=== PATIENT | male | born 1955 | race Caucasian/White ===

== ENCOUNTER 2018-08-08 14:51 | Inpatient (IN) | payer OTHER, SELFPAY ==
[2018-08-08 14:51] VITALS: BP 124/84; PULSE 84; RESP 14; TEMP 37; O2SAT 99; BMI 20.5
--- NOTE | 2018-08-08 15:29 | CT_ITS ---
STUDY: CT ABDOMEN AND PELVIS WITH CONTRAST REASON FOR EXAM: Male, 63 years old. Right lower quadrant abdominal pain bulge when standing question hernia. Prior appendectomy. RADIATION DOSAGE (If Supplied By Facility): CTDIvol = ( 8.40 ) mGy, DLP = ( 332.33 ) mGycm TECHNIQUE: Transaxial images were obtained from the dome of the diaphragm to the symphysis pubis without oral contrast. 100mL ml of Isovue 300 contrast was administered. Sagittal and coronal images were reconstructed. Individualized dose optimization techniques were used for this CT. COMPARISON: None. FINDINGS: The visualized lung bases are unremarkable. The visualized portions of the heart are within normal limits. There is a 2.6 x 2.4 cm cyst in the dome of the liver. Additional subcentimeter hypodensities are too small to characterize. The liver is otherwise unremarkable. Normal gallbladder and extrahepatic biliary system. Normal spleen. Normal pancreas. Normal bilateral adrenal glands. Normal right kidney. Normal left kidney. The aorta is normal in caliber. There is trace free fluid in the pelvis. There is no free air or organized collection. There is a high-grade small bowel obstruction due to a short segment of incarcerated ileum within a small right inguinal hernia. The distal ileum is decompressed. Colon is normal to decompressed. Normal urinary bladder. Normal abdominal wall. Normal osseous structures. CT/Abdomen/Pelvis WITH Contrast IMPRESSION: 1. High-grade small bowel obstruction due to small incarcerated right inguinal hernia. 2. A 2.6 cm hepatic cyst. Additional smaller lesions are too small to characterize. N.B. : The above information has been verbally conveyed by Dania Cade MD to Anahi Richmond MD, on 08/08/2018 19:03:58 (ET). Electronically Signed: Dania Cade MD at 18:49 EST Tel , Service support ,
--- NOTE | 2018-08-08 15:30 | ED.VISSUMM ---
- ER Visit Summary Date of Service: 08/08/18 Chief Complaint: Abdominal pain History of Present Illness: The patient is a 63 M who presents with 2 weeks of abdominal pain. states he slipped in his truck 2 weeks ago and felt something pull in his groin region. He has been having intermittent pain ever since, and has a bulge in the right lower abdomen. Pain today is 9 out of 10. Pain is worse with standing, and improved when the lump receives. He denies nausea, vomiting, diarrhea, constipation. No urinary symptoms. Patient did have a fever of 101 yesterday. Pain is much worse today and is more generalized. Patient has history of an appendectomy and hernia repair as a baby. He also had to have his urinary tract rebuilt. He denies any other medical problems. Physical Examination: Vital signs: afebrile, hemodynamically stable, no hypoxia on room air General: well nourished, well developed, in no distress, very thin Skin: warm, dry, no rash, no pallor HEENT: normocephalic and atraumatic; PERRL, EOMI, moist mucous membranes Cardiovascular: regular rate and rhythm without murmurs, no peripheral edema, 2+ pulses all distal extremities Respiratory: No increased work of breathing, lungs are clear to auscultation bilaterally, no rales, rhonchi or wheezing Abdominal: Abdomen is soft, diffusely tender with a palpable mass in the right inguinal region, no overlying induration or color change, not reducible, painful to palpation. normoactive bowel sounds, no guarding or rebound MSK: Moves all extremities, no deformities, normal strength Neuro: Awake and alert, oriented ?4. No facial droop, sensation and motor function intact and symmetric Test Results: Abnormal Lab Results 08/08/18 08/08/18 08/08/18 15:40 15:40 15:40 WBC 13.2 H RBC 4.26 L Hgb 12.0 L Hct 36.7 L MCV 86.2 MCH 28.2 MCHC 32.7 RDW 13.7 RDW Differential 43.2 Plt Count 714 H MPV 8.4 Immature Gran % (Auto) 0.800 Neut % (Auto) 77.5 H Lymph % (Auto) 11.6 L [place] % (Auto) 7.4 Eos % (Auto) 2.2 Baso % (Auto) 0.5 Absolute Neuts (auto) 10.2 H Absolute Lymphs (auto) 1.53 Total Counted Not Reportable Sodium 136 Potassium 4.3 Chloride 103 Carbon Dioxide 26.0 Anion Gap 7 BUN 15 Creatinine 0.82 Estim Creat Clear Calc 73.79 Est GFR (MDRD) Af Amer 123 Est GFR (MDRD) Non-Af 102 BUN/Creatinine Ratio 18.4 Glucose 88 Lactic Acid 1.1 Calcium 8.9 Total Bilirubin 0.40 AST 20 ALT 53 Alkaline Phosphatase 235 H Total Protein 8.3 H Albumin 3.1 L Globulin 5.2 H Albumin/Globulin Ratio 0.6 L Urine Color Urine Clarity Urine pH Ur Specific [place] Urine Protein Urine Glucose (UA) Urine Ketones Urine Occult Blood Urine Nitrite Urine Bilirubin Urine Urobilinogen Ur Leukocyte Esterase Urine RBC Urine WBC Ur Squamous Epith Cells Amorphous Sediment Urine Bacteria Urine Mucus 08/08/18 17:30 WBC RBC Hgb Hct MCV MCH MCHC RDW RDW Differential Plt Count MPV Immature Gran % (Auto) Neut % (Auto) Lymph % (Auto) [place] % (Auto) Eos % (Auto) Baso % (Auto) Absolute Neuts (auto) Absolute Lymphs (auto) Total Counted Sodium Potassium Chloride Carbon Dioxide Anion Gap BUN Creatinine Estim Creat Clear Calc Est GFR (MDRD) Af Amer Est GFR (MDRD) Non-Af BUN/Creatinine Ratio Glucose Lactic Acid Calcium Total Bilirubin AST ALT Alkaline Phosphatase Total Protein Albumin Globulin Albumin/Globulin Ratio Urine Color Yellow Urine Clarity Sl. Cloudy Urine pH 5.0 Ur Specific [place] 1.020 Urine Protein 30 H Urine Glucose (UA) Normal Urine Ketones 5 H Urine Occult Blood 10 H Urine Nitrite Positive H Urine Bilirubin Negative Urine Urobilinogen Normal Ur Leukocyte Esterase 500 H Urine RBC 0-5 SEEN Urine WBC 50-100 SEEN Ur Squamous Epith Cells 5-10 SEEN Amorphous Sediment 1+ URATE Urine Bacteria 3+ Urine Mucus 0 SEEN Clinical Impression(s) from Imaging Studies Abdomen/Pelvis CT 08/08/18 15:29 IMPRESSION: 1. High-grade small bowel obstruction due to small incarcerated right inguinal hernia. 2. A 2.6 cm hepatic cyst. Additional smaller lesions are too small to characterize. N.B. : The above information has been verbally conveyed by Dania Cade MD to Anahi Richmond MD, on 08/08/2018 19:03:58 (ET). Electronically Signed: Dania Cade MD at 18:49 EST Tel , Service support , Emergency Department Course and Treatment: Patient's evaluation is consistent with a nonreducible hernia. Because he is having diffuse abdominal pain now, bowel obstruction is a concern. He was given morphine, Zofran and fluids. Labs showed leukocytosis of 13.2. Urine showed pyuria. Lactate was normal. EKG showed a sinus rhythm with no ischemic changes. QRS and T wave morphology was consistent with patient being tall and thin. CT abdomen and pelvis was performed with p.o. and IV contrast given patient's very thin body habitus. It showed an incarcerated hernia and small bowel obstruction. Contrast remained in the patient's stomach, and he vomited. On reevaluation of the hernia, it did reduce. Patient was discussed with Dr. Conde, who admitted the patient for further evaluation and management. He did not wish an NG tube be placed in the emergency department at this time. Treatment Plan: [] Disposition: [] Impression: Incarcerated right inguinal hernia, small bowel obstruction This note was generated with [employer] dictation software. It may contain incorrect words, spelling, and punctuation that were not noted in review of the chart prior to signing ED Disposition - Plan for ED Patient: Disposition: Acute Care Hospital [facility] Chief Complaint: Abd Pain
--- NOTE | 2018-08-08 15:49 | NURSING ---
NO OLD EKGS
[2018-08-08] MEDS: 0.9% Normal Saline 1,000 ML 1000 ML IV (15:50)
[2018-08-08] MEDS: Ondansetron 4 MG/2 ML Vial IV (15:50)
[2018-08-08] MEDS: Morphine 4 MG/ML Syringe IV (15:51)
[2018-08-08 15:52] LABS: Absolute Lymphocyte Count 1.53 X10^3/ul (0.83-4.51); Absolute Neutrophil Count 10.2 X10^3/uL (2.0-7.7); Basophil# 0.06 X10^3/uL; Basophil% 0.5 % (0-1); Eosinophil# 0.29 X10^3/uL; Eosinophils% 2.2 % (0-5); Hematocrit 36.7 % (40-54); Lymphocyte # 1.53 X10^3/ul (4.0); Lymphocyte % 11.6 % (19-41); Mean Corp Hgb Conc 32.7 g/gl (32-36); Mean Corpuscular Hgb 28.2 pg (27.0-32.0); Mean Corpuscular Volume 86.2 fL (80-94); Mean Platelet Vol. 8.4 fl (6.2-12.0); Monocyte# 0.97 X10^3/uL; Monocyte% 7.4 % (0-10); Neutrophil % 77.5 % (47-70); Platelet Count 714 K/mm3 (150-450); RBC Distribution Width CV 13.7 % (11.6-14.6); RBC Distribution Width SD 43.2 fl (35.1-43.9); Red Blood Count 4.26 M/mm3 (4.6-6.2); White Blood Count 13.2 K/mm3 (4.4-11.0)
[2018-08-08 15:53] LABS: POSITIVE COUNT NO; POSITIVE DIFFERENTIAL NO; POSITIVE MORPHOLOGY NO
--- NOTE | 2018-08-08 15:54 | ED.RN ---
THIS RN ENTERED ROOM. PT PALE EXTREMELY DIAPHORETIC. THIS RN ESTABLISHED FLUIDS NAUSEA MEDICATION. CALLED FOR EKG.
[2018-08-08 15:56] VITALS: BP 106/60; PULSE 65; RESP 18; O2SAT 100
[2018-08-08 16:06] LABS: ALB/GLOB Ratio 0.6 RATIO (0.9-2.4); AST(SGOT) 20 U/L (15-37); Alanine Aminotransfer ALT/SGPT 53 U/L (16-61); Albumin, Serum 3.1 g/dL (3.2-5.0); Alkaline Phosphatase 235 U/L (45-117); Anion Gap 7 (5-15); BUN 15 mg/dL (7-18); BUN/Creat Ratio 18.4 RATIO (10-20); Calcium,Total 8.9 mg/dL (8.5-10.1); Chloride 103 mmol/L (98-107); Creatinine, Serum 0.82 mg/dL (0.70-1.30); EST Glomerular Filtration Rate 102 mL/min (>60); Est Glom Filt Rate - Afr Amer 123 mL/min (>60); Estimated Creatinine Clearance 73.79 ml/min; Globulin 5.2 g/dL (2.2-4.2); Glucose 88 mg/dL (74-106); Potassium 4.3 mmol/L (3.5-5.1); Protein, Total 8.3 g/dL (6.4-8.2); Sodium Level 136 mmol/L (136-145)
[2018-08-08 16:20] LABS: Lactic Acid 1.1 mmol/L (0.4-2.0)
[2018-08-08 17:08] VITALS: BP 140/85; PULSE 77; RESP 16; O2SAT 98
[2018-08-08 17:46] LABS: Mucous, Urine 0 SEEN /hpf (<or=2+)
[2018-08-08 17:49] LABS: Color, Urine Yellow (Yellow); Glucose, Dipstick Normal (Normal); Ketone-Dipstick 5 mg/dl (Negative); Leukocyte Esterase-Dipstick 500 /ul (Negative); Nitrite-Dipstick Positive (Negative); Occult Blood-Urine 10 /ul (Negative); Protein-Dipstick 30 mg/dl (Negative); Urine Bilirubin Dipstick Negative (Negative); Urine Clarity Sl. Cloudy (Clear); Urine Urobilinogen Normal (Normal)
[2018-08-08 18:01] LABS: Amorphous Sediment 1+ URATE; Bacteria 3+ /hpf (None Seen); Red Blood Cells-Urine 0-5 SEEN /hpf (0-5); Squamous Epithelial Cells - UA 5-10 SEEN /hpf (0-5); White Blood Cells 50-100 SEEN /hpf (0-5)
[2018-08-08] MEDS: proMETHazine 25 MG/ML Syringe 12.5 MG IV (18:36)
--- NOTE | 2018-08-08 19:57 | PCM.HP.STD ---
Problem List (1) Incarcerated right inguinal hernia Status: Acute History of Present Illness Date of Admission: 08/08/18 Chief Complaint: Right inguinal hernia causing small bowel obstruction The patient is a 63 year old M who noted that he fell 2 weeks ago. Ever since he has been having problems with a right inguinal hernia. He says that it has been bulging out and spontaneously reducing. He says that he has been having abdominal pain since 10 AM this morning with nausea and vomiting. He says that the hernia came out and did not go back in with laying down like it normally does. The patient reported he was also having some subjective fever. The patient says that the hernia reduced itself while in the emergency room after CAT scan. He reports currently that he feels much better. He is not having any sharp abdominal pain. He is having some dull aching. The right inguinal canal is nontender. He says he passed gas about 15 minutes ago. Past Medical History Allergies No Known Allergies Allergy (Verified 08/08/18 14:55) Home Medications: Ambulatory Orders Medication Instructions Recorded Naproxen Sodium [Aleve] 110 mg PO DAILY 03/10/14 Surgical History: - - Patient believes he had right inguinal hernia repaired as a child. Patient also reports he had appendectomy as a child as well as a urethral repair and suprapubic catheter. Patient also had neck surgery with pins placed in his neck. Smoking Status: Never smoker Alcohol: None Drugs: None - *Family History Maternal History Items: Stroke Review of Systems Constitutional: Reports: Fever Eyes: Denies: Blurred vision HEENT: Denies: Difficulty Hearing, Difficulty Swallowing Cardiovascular: Denies: Chest Pain Respiratory: Denies: Cough, Shortness of Breath Gastrointestinal: Reports: Abdominal Pain, Nausea, Vomiting Genitourinary: Denies: Dysuria Musculoskeletal: Denies: Joint Tenderness Skin: Denies: Dryness, Jaundice Neurological: Denies: Balance problems Psychiatric: Denies: Anxiety, Depression Hematologic/ Lymphatic: Denies: Anemia, Easy Bruising VTE Information - Inpt Only VTE Present on Admission: No VTE Mechan Device Prophylaxis: SCD's Patient Problems: Active and Suspected Problems Incarcerated right inguinal hernia (Acute) - Physical Exam General: Alert, Oriented x3, Cooperative, No apparent distress HEENT: Atraumatic, PERRLA, EOMI Neck: Supple Lungs: Normal air movement Cardiovascular: Regular rate, Regular Rhythm Abdomen: Soft, Distended, Tender - Mildly tender diffusely with no guarding or rebound., - - I do not palpate any bowel in the right inguinal canal. There are no skin changes. His right inguinal region is nontender. Extremities: No clubbing Skin: No rashes Musculoskeletal: No Muscle Wasting Neurological: Cranial nerves II-XII grossly intact Psych/Mental Status: Normal Affect, Appropriate Vital Signs Temp Pulse Resp BP Pulse Ox 98.6 F 77 16 140/85 H 98 08/08/18 14:51 08/08/18 17:08 08/08/18 17:08 08/08/18 17:08 08/08/18 17:08 Oxygen Delivery Method Room Air Weight: 123 lb 2.051 oz Body Mass Index (BMI) 20.5 Laboratory Tests Past 24 Hrs 08/08/18 08/08/18 08/08/18 15:40 15:40 15:40 WBC 13.2 H RBC 4.26 L Hgb 12.0 L Hct 36.7 L MCV 86.2 MCH 28.2 MCHC 32.7 RDW 13.7 RDW Differential 43.2 Plt Count 714 H MPV 8.4 Immature Gran % (Auto) 0.800 Neut % (Auto) 77.5 H Lymph % (Auto) 11.6 L [place] % (Auto) 7.4 Eos % (Auto) 2.2 Baso % (Auto) 0.5 Absolute Neuts (auto) 10.2 H Absolute Lymphs (auto) 1.53 Total Counted Not Reportable Sodium 136 Potassium 4.3 Chloride 103 Carbon Dioxide 26.0 Anion Gap 7 BUN 15 Creatinine 0.82 Estim Creat Clear Calc 73.79 Est GFR (MDRD) Af Amer 123 Est GFR (MDRD) Non-Af 102 BUN/Creatinine Ratio 18.4 Glucose 88 Lactic Acid 1.1 Calcium 8.9 Total Bilirubin 0.40 AST 20 ALT 53 Alkaline Phosphatase 235 H Total Protein 8.3 H Albumin 3.1 L Globulin 5.2 H Albumin/Globulin Ratio 0.6 L Urine Color Urine Clarity Urine pH Ur Specific [place] Urine Protein Urine Glucose (UA) Urine Ketones Urine Occult Blood Urine Nitrite Urine Bilirubin Urine Urobilinogen Ur Leukocyte Esterase Urine RBC Urine WBC Ur Squamous Epith Cells Amorphous Sediment Urine Bacteria Urine Mucus 08/08/18 17:30 WBC RBC Hgb Hct MCV MCH MCHC RDW RDW Differential Plt Count MPV Immature Gran % (Auto) Neut % (Auto) Lymph % (Auto) [place] % (Auto) Eos % (Auto) Baso % (Auto) Absolute Neuts (auto) Absolute Lymphs (auto) Total Counted Sodium Potassium Chloride Carbon Dioxide Anion Gap BUN Creatinine Estim Creat Clear Calc Est GFR (MDRD) Af Amer Est GFR (MDRD) Non-Af BUN/Creatinine Ratio Glucose Lactic Acid Calcium Total Bilirubin AST ALT Alkaline Phosphatase Total Protein Albumin Globulin Albumin/Globulin Ratio Urine Color Yellow Urine Clarity Sl. Cloudy Urine pH 5.0 Ur Specific [place] 1.020 Urine Protein 30 H Urine Glucose (UA) Normal Urine Ketones 5 H Urine Occult Blood 10 H Urine Nitrite Positive H Urine Bilirubin Negative Urine Urobilinogen Normal Ur Leukocyte Esterase 500 H Urine RBC 0-5 SEEN Urine WBC 50-100 SEEN Ur Squamous Epith Cells 5-10 SEEN Amorphous Sediment 1+ URATE Urine Bacteria 3+ Urine Mucus 0 SEEN Clinical Impression(s) from Imaging Studies Abdomen/Pelvis CT 08/08/18 15:29 IMPRESSION: 1. High-grade small bowel obstruction due to small incarcerated right inguinal hernia. 2. A 2.6 cm hepatic cyst. Additional smaller lesions are too small to characterize. N.B. : The above information has been verbally conveyed by Dania Cade MD to Anahi Richmond MD, on 08/08/2018 19:03:58 (ET). Electronically Signed: Dania Cade MD at 18:49 EST Tel , Service support , Assessment/Plan All Active Problems Incarcerated right inguinal hernia (Acute) 63-year-old male with right inguinal hernia causing small bowel obstruction 1. The patient had a CT scan which shows a high-grade bowel obstruction being caused by a right inguinal hernia. The patient reports that this reduced itself after CT scan and he is feeling much better. 2. The patient's vitals appear stable and he is not having any rebound or guarding. At this time I will observe the patient and keep him n.p.o. overnight. As long as the patient is doing well tomorrow, I will taken for surgery Friday to repair his right inguinal hernia. If there are any signs of ischemic bowel such as guarding, worsening of abdominal pain, fever, recurrence of his incarcerated inguinal hernia, I will take him to surgery emergently. I will keep the patient on ice chips overnight in case he requires surgery. I will also hold Lovenox in case surgery is warranted. If patient is doing well in the morning and passing flatus I will start him on clear liquids and take him for surgery on Friday. Damion Conde MD Pager: [facility] [address] [place] [address] [address] [place] [address] Office:
[2018-08-08 20:00] VITALS: BP 119/83; PULSE 73; PULSE 79; RESP 17; O2SAT 97
--- NOTE | 2018-08-08 20:03 | HP.PCM_ITS ---
Problem List (1) Incarcerated right inguinal hernia Status: Acute History of Present Illness Date of Admission: 08/08/18 Chief Complaint: Right inguinal hernia causing small bowel obstruction The patient is a 63 year old M who noted that he fell 2 weeks ago. Ever since he has been having problems with a right inguinal hernia. He says that it has been bulging out and spontaneously reducing. He says that he has been having abdominal pain since 10 AM this morning with nausea and vomiting. He says that the hernia came out and did not go back in with laying down like it normally does. The patient reported he was also having some subjective fever. The patient says that the hernia reduced itself while in the emergency room after CAT scan. He reports currently that he feels much better. He is not having any sharp abdominal pain. He is having some dull aching. The right inguinal canal is nontender. He says he passed gas about 15 minutes ago. Past Medical History Allergies No Known Allergies Allergy (Verified 08/08/18 14:55) Home Medications: Ambulatory Orders Medication Instructions Recorded Naproxen Sodium [Aleve] 110 mg PO DAILY 03/10/14 Surgical History: - - Patient believes he had right inguinal hernia repaired as a child. Patient also reports he had appendectomy as a child as well as a urethral repair and suprapubic catheter. Patient also had neck surgery with pins placed in his neck. Smoking Status: Never smoker Alcohol: None Drugs: None - *Family History Maternal History Items: Stroke Review of Systems Constitutional: Reports: Fever Eyes: Denies: Blurred vision HEENT: Denies: Difficulty Hearing, Difficulty Swallowing Cardiovascular: Denies: Chest Pain Respiratory: Denies: Cough, Shortness of Breath Gastrointestinal: Reports: Abdominal Pain, Nausea, Vomiting Genitourinary: Denies: Dysuria Musculoskeletal: Denies: Joint Tenderness Skin: Denies: Dryness, Jaundice Neurological: Denies: Balance problems Psychiatric: Denies: Anxiety, Depression Hematologic/ Lymphatic: Denies: Anemia, Easy Bruising VTE Information - Inpt Only VTE Present on Admission: No VTE Mechan Device Prophylaxis: SCD's Patient Problems: Active and Suspected Problems Incarcerated right inguinal hernia (Acute) - Physical Exam General: Alert, Oriented x3, Cooperative, No apparent distress HEENT: Atraumatic, PERRLA, EOMI Neck: Supple Lungs: Normal air movement Cardiovascular: Regular rate, Regular Rhythm Abdomen: Soft, Distended, Tender - Mildly tender diffusely with no guarding or rebound., - - I do not palpate any bowel in the right inguinal canal. There are no skin changes. His right inguinal region is nontender. Extremities: No clubbing Skin: No rashes Musculoskeletal: No Muscle Wasting Neurological: Cranial nerves II-XII grossly intact Psych/Mental Status: Normal Affect, Appropriate Vital Signs Temp Pulse Resp BP Pulse Ox 98.6 F 77 16 140/85 H 98 08/08/18 14:51 08/08/18 17:08 08/08/18 17:08 08/08/18 17:08 08/08/18 17:08 Oxygen Delivery Method Room Air Weight: 123 lb 2.051 oz Body Mass Index (BMI) 20.5 Laboratory Tests Past 24 Hrs 08/08/18 08/08/18 08/08/18 15:40 15:40 15:40 WBC 13.2 H RBC 4.26 L Hgb 12.0 L Hct 36.7 L MCV 86.2 MCH 28.2 MCHC 32.7 RDW 13.7 RDW Differential 43.2 Plt Count 714 H MPV 8.4 Immature Gran % (Auto) 0.800 Neut % (Auto) 77.5 H Lymph % (Auto) 11.6 L [place] % (Auto) 7.4 Eos % (Auto) 2.2 Baso % (Auto) 0.5 Absolute Neuts (auto) 10.2 H Absolute Lymphs (auto) 1.53 Total Counted Not Reportable Sodium 136 Potassium 4.3 Chloride 103 Carbon Dioxide 26.0 Anion Gap 7 BUN 15 Creatinine 0.82 Estim Creat Clear Calc 73.79 Est GFR (MDRD) Af Amer 123 Est GFR (MDRD) Non-Af 102 BUN/Creatinine Ratio 18.4 Glucose 88 Lactic Acid 1.1 Calcium 8.9 Total Bilirubin 0.40 AST 20 ALT 53 Alkaline Phosphatase 235 H Total Protein 8.3 H Albumin 3.1 L Globulin 5.2 H Albumin/Globulin Ratio 0.6 L Urine Color Urine Clarity Urine pH Ur Specific [place] Urine Protein Urine Glucose (UA) Urine Ketones Urine Occult Blood Urine Nitrite Urine Bilirubin Urine Urobilinogen Ur Leukocyte Esterase Urine RBC Urine WBC Ur Squamous Epith Cells Amorphous Sediment Urine Bacteria Urine Mucus 08/08/18 17:30 WBC RBC Hgb Hct MCV MCH MCHC RDW RDW Differential Plt Count MPV Immature Gran % (Auto) Neut % (Auto) Lymph % (Auto) [place] % (Auto) Eos % (Auto) Baso % (Auto) Absolute Neuts (auto) Absolute Lymphs (auto) Total Counted Sodium Potassium Chloride Carbon Dioxide Anion Gap BUN Creatinine Estim Creat Clear Calc Est GFR (MDRD) Af Amer Est GFR (MDRD) Non-Af BUN/Creatinine Ratio Glucose Lactic Acid Calcium Total Bilirubin AST ALT Alkaline Phosphatase Total Protein Albumin Globulin Albumin/Globulin Ratio Urine Color Yellow Urine Clarity Sl. Cloudy Urine pH 5.0 Ur Specific [place] 1.020 Urine Protein 30 H Urine Glucose (UA) Normal Urine Ketones 5 H Urine Occult Blood 10 H Urine Nitrite Positive H Urine Bilirubin Negative Urine Urobilinogen Normal Ur Leukocyte Esterase 500 H Urine RBC 0-5 SEEN Urine WBC 50-100 SEEN Ur Squamous Epith Cells 5-10 SEEN Amorphous Sediment 1+ URATE Urine Bacteria 3+ Urine Mucus 0 SEEN Clinical Impression(s) from Imaging Studies Abdomen/Pelvis CT 08/08/18 15:29 IMPRESSION: 1. High-grade small bowel obstruction due to small incarcerated right inguinal hernia. 2. A 2.6 cm hepatic cyst. Additional smaller lesions are too small to characterize. N.B. : The above information has been verbally conveyed by Dania Cade MD to Anahi Richmond MD, on 08/08/2018 19:03:58 (ET). Electronically Signed: Dania Cade MD at 18:49 EST Tel , Service support , Assessment/Plan All Active Problems Incarcerated right inguinal hernia (Acute) 63-year-old male with right inguinal hernia causing small bowel obstruction 1. The patient had a CT scan which shows a high-grade bowel obstruction being caused by a right inguinal hernia. The patient reports that this reduced itself after CT scan and he is feeling much better. 2. The patient's vitals appear stable and he is not having any rebound or guarding. At this time I will observe the patient and keep him n.p.o. overnight. As long as the patient is doing well tomorrow, I will taken for surgery Friday to repair his right inguinal hernia. If there are any signs of ischemic bowel such as guarding, worsening of abdominal pain, fever, recurrence of his incarcerated inguinal hernia, I will take him to surgery emergently. I will keep the patient on ice chips overnight in case he requires surgery. I will also hold Lovenox in case surgery is warranted. If patient is doing well in the morning and passing flatus I will start him on clear liquids and take him for surgery on Friday. Damion Conde MD Pager: [facility] [address] [place] [address] [address] [place] [address] Office:
[2018-08-08 20:57] VITALS: BMI 19.3
[2018-08-08 20:59] VITALS: BP 112/64; PULSE 72; RESP 14; TEMP 36.8; O2SAT 97
[2018-08-08 21:02] VITALS: BMI 19.3
[2018-08-08] MEDS: Dextrose 5%-Lactated Ringers 1,000 ML 125 ML IV (23:24)
[2018-08-09] VITALS (10 sets, daily range): BP systolic 109–133; BP diastolic 69–81; PULSE 66–83; RESP 14–18; TEMP 36.1–37.1; O2SAT 97–99; BMI 19.3
--- NOTE | 2018-08-09 02:22 | NURSING ---
Gato Dodson (son) [phone] and daughter in law Lisa Dodson [phone] requesting to be contacted if needed as they live the closest.
[2018-08-09] MEDS: Ondansetron 4 MG/2 ML Vial IV (05:21)
--- NOTE | 2018-08-09 05:55 | RAD_ITS ---
STUDY: X-RAY - ABDOMEN/PELVIS REASON FOR EXAM: Male, 63 years old. Small bowel obstruction TECHNIQUE: Single AP view of the abdomen / pelvis. 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 There is no demonstrated free abdominal air on supine image. Contrast is outlining the urinary bladder and bilateral kidneys. Stable right pelvic coarse calcification. Normal soft tissue structures. Normal visualized osseous structures. RAD/Abdomen Single View (Portable) IMPRESSION: No significant change small bowel obstruction. Electronically Signed: Alia Hoskins MD at 5:49 EST , Service support ,
[2018-08-09 06:22] LABS: Absolute Lymphocyte Count 1.48 X10^3/ul (0.83-4.51); Absolute Neutrophil Count 10.8 X10^3/uL (2.0-7.7); Basophil# 0.04 X10^3/uL; Basophil% 0.3 % (0-1); Eosinophil# 0.22 X10^3/uL; Eosinophils% 1.6 % (0-5); Hematocrit 35.9 % (40-54); Hemoglobin 11.6 g/dl (13.0-16.5); Lymphocyte # 1.48 X10^3/ul (4.0); Lymphocyte % 10.9 % (19-41); Mean Corp Hgb Conc 32.3 g/gl (32-36); Mean Corpuscular Volume 86.5 fL (80-94); Mean Platelet Vol. 8.7 fl (6.2-12.0); Monocyte# 0.95 X10^3/uL; Neutrophil # 10.75 X10^3/uL (2.7-7.7); Neutrophil % 79.5 % (47-70); RBC Distribution Width CV 13.5 % (11.6-14.6); RBC Distribution Width SD 41.9 fl (35.1-43.9); Red Blood Count 4.15 M/mm3 (4.6-6.2); White Blood Count 13.5 K/mm3 (4.4-11.0)
[2018-08-09 06:28] LABS: Anion Gap 9 (5-15); BUN 15 mg/dL (7-18); BUN/Creat Ratio 19.2 RATIO (10-20); Calcium,Total 8.5 mg/dL (8.5-10.1); Chloride 104 mmol/L (98-107); Creatinine, Serum 0.78 mg/dL (0.70-1.30); EST Glomerular Filtration Rate 107 mL/min (>60); Est Glom Filt Rate - Afr Amer 129 mL/min (>60); Estimated Creatinine Clearance 73.06 ml/min; Glucose 137 mg/dL (74-106); Sodium Level 138 mmol/L (136-145)
[2018-08-09 06:38] LABS: Platelet Count 775 K/mm3 (150-450)
[2018-08-09 06:39] LABS: Differential Indicated SCAN CRITERIA MET; POSITIVE COUNT YES; POSITIVE DIFFERENTIAL NO; POSITIVE MORPHOLOGY NO
[2018-08-09 06:46] LABS: Differential Comment SCAN; Platelet Estimate MKD INC (ADEQ); Platelet Morphology LARGE
[2018-08-09] MEDS: Dextrose 5%-Lactated Ringers 1,000 ML 125 ML IV ×3 (06:47→20:44)
--- NOTE | 2018-08-09 07:28 | PCM.PN.SRG ---
Patient Problems: Active and Suspected Problems Incarcerated right inguinal hernia (Acute) Subjective: Patient had some mild nausea this morning but he reports his pain is better than yesterday. He is still having some abdominal aching. He said he is not passing any flatus. - Physical Exam General: Alert, Oriented x3, Cooperative, No apparent distress Neck: No JVD Lungs: Normal air movement Cardiovascular: Regular rate, Regular Rhythm Abdomen: Soft, Distended, Tender - Mild diffuse tenderness but no guarding or rebound, - - No inguinal bulging Vital Signs Temp Pulse Resp BP Pulse Ox 98.4 F 71 16 109/70 97 08/09/18 03:08 08/09/18 03:08 08/09/18 03:08 08/09/18 03:08 08/09/18 03:08 Oxygen Delivery Method Room Air Weight: 115 lb 15.41 oz Body Mass Index (BMI) 19.3 Intake and Output for Last 24 Hours 08/07/18 08/08/18 08/09/18 23:59 23:59 23:59 Intake Total 1358 / 1358 Balance 1358 / 1358 Laboratory Tests Past 24 Hrs 08/08/18 08/08/18 08/08/18 15:40 15:40 15:40 WBC 13.2 H RBC 4.26 L Hgb 12.0 L Hct 36.7 L MCV 86.2 MCH 28.2 MCHC 32.7 RDW 13.7 RDW Differential 43.2 Plt Count 714 H MPV 8.4 Immature Gran % (Auto) 0.800 Neut % (Auto) 77.5 H Lymph % (Auto) 11.6 L [place] % (Auto) 7.4 Eos % (Auto) 2.2 Baso % (Auto) 0.5 Absolute Neuts (auto) 10.2 H Absolute Lymphs (auto) 1.53 Total Counted Not Reportable Differential Comment Diff Path Review Platelet Estimate Plt Morphology Comment Sodium 136 Potassium 4.3 Chloride 103 Carbon Dioxide 26.0 Anion Gap 7 BUN 15 Creatinine 0.82 Estim Creat Clear Calc 73.79 Est GFR (MDRD) Af Amer 123 Est GFR (MDRD) Non-Af 102 BUN/Creatinine Ratio 18.4 Glucose 88 Lactic Acid 1.1 Calcium 8.9 Total Bilirubin 0.40 AST 20 ALT 53 Alkaline Phosphatase 235 H Total Protein 8.3 H Albumin 3.1 L Globulin 5.2 H Albumin/Globulin Ratio 0.6 L Urine Color Urine Clarity Urine pH Ur Specific [place] Urine Protein Urine Glucose (UA) Urine Ketones Urine Occult Blood Urine Nitrite Urine Bilirubin Urine Urobilinogen Ur Leukocyte Esterase Urine RBC Urine WBC Ur Squamous Epith Cells Amorphous Sediment Urine Bacteria Urine Mucus 08/08/18 08/09/18 08/09/18 17:30 05:41 05:41 WBC 13.5 H RBC 4.15 L Hgb 11.6 L Hct 35.9 L MCV 86.5 MCH 28.0 MCHC 32.3 RDW 13.5 RDW Differential 41.9 Plt Count 775 H* MPV 8.7 Immature Gran % (Auto) 0.700 Neut % (Auto) 79.5 H Lymph % (Auto) 10.9 L [place] % (Auto) 7.0 Eos % (Auto) 1.6 Baso % (Auto) 0.3 Absolute Neuts (auto) 10.8 H Absolute Lymphs (auto) 1.48 Total Counted Not Reportable Differential Comment SCAN Diff Path Review May foll Platelet Estimate MKD INC Plt Morphology Comment LARGE Sodium 138 Potassium 4.0 Chloride 104 Carbon Dioxide 25.0 Anion Gap 9 BUN 15 Creatinine 0.78 Estim Creat Clear Calc 73.06 Est GFR (MDRD) Af Amer 129 Est GFR (MDRD) Non-Af 107 BUN/Creatinine Ratio 19.2 Glucose 137 H Lactic Acid Calcium 8.5 Total Bilirubin AST ALT Alkaline Phosphatase Total Protein Albumin Globulin Albumin/Globulin Ratio Urine Color Yellow Urine Clarity Sl. Cloudy Urine pH 5.0 Ur Specific [place] 1.020 Urine Protein 30 H Urine Glucose (UA) Normal Urine Ketones 5 H Urine Occult Blood 10 H Urine Nitrite Positive H Urine Bilirubin Negative Urine Urobilinogen Normal Ur Leukocyte Esterase 500 H Urine RBC 0-5 SEEN Urine WBC 50-100 SEEN Ur Squamous Epith Cells 5-10 SEEN Amorphous Sediment 1+ URATE Urine Bacteria 3+ Urine Mucus 0 SEEN Medical Necessity - Tobacco Use Smoking Status: Never smoker Assessment/Plan All Active Problems Incarcerated right inguinal hernia (Acute) 63-year-old male with right inguinal hernia causing small bowel obstruction 1. Patient reports he is not having any flatus this morning. I did a KUB which showed some dilated loops of small bowel. I will get a CAT scan to ensure that it is fully reduced. If it is not fully reduced I will take him for surgery today. There is a chance he is having obstruction from his bowel that was incarcerated in the hernia. If I do taken to surgery I would start with all exploratory laparoscopy to check the segment of bowel that was stuck in the hernia and then proceed with hernia repair. 2. N.p.o., IV fluids, SCDs. Damion Conde MD Pager: [facility] [address] [place] [address], [address] [place] [address] Office:
[2018-08-09] MEDS: Bupivacaine 0.5% PF 10 ML VIAL (09:51)
--- NOTE | 2018-08-09 10:06 | NURSING ---
pt left floor for surgery at 942
--- NOTE | 2018-08-09 11:21 | OP.PCM_ITS ---
Problem List (1) Incarcerated right inguinal hernia Status: Acute Report of Operation Date of Procedure: 08/09/18 Pre-Operative Diagnosis: Incarcerated right inguinal hernia with small bowel obstruction Post-Operative Diagnosis: Same Surgery/Procedure Performed:: Laparoscopic right inguinal hernia repair with mesh Description of Surgical Findings:: The patient's small bowel was dilated. He had copious fluid in his stomach. Upon entering the abdomen it appeared that the small bowel had been reduced back through the fascial defect but was still caught in a peritoneal defect. This w as in the right direct space. This was reduced and the bowel appeared viable. The right inguinal hernia was repaired with mesh. The patient also had a left inguinal hernia both direct and indirect but this was not repaired at this time due to inflammation and risk of infection. Specimen's removed: None Description of Procedure: The patient was brought back to the operating room and general anesthesia was induced. An OG tube was placed. A Cardoza was not placed due to the patient's past urethral reconstruction. Next the abdomen was prepped and draped in the usual sterile fashion and an incision was made superior to the umbilicus and deepened down to the fascia. The fascia was elevated and incised. A finger sweep was performed and a port was placed into the abdomen and the abdomen was insufflated to 15 mmHg. Next the patient was placed in Trendelenburg and a left sidewall 5 mm port was placed under direct visualization. A right lateral 5 mm port was placed as well. Next the small bowel was reduced into the abdomen. It appeared that the small bowel was reduced through the fascial defect manually yesterday but it was still stuck in a peritoneal defect. The bowel was inspected and it appeared that only the small edge of the sidewall of the bowel was trapped in the hernia and this appeared viable. There was good flow of enteric contents past this area after it was reduced. The patient also had left inguinal hernia. At this time there was minimal inflammation so I decided repair the right inguinal hernia with mesh but I did not feel that the risk of repairing a left inguinal hernia with an additional piece of mesh was warranted at this time. The right lower peritoneum was grasped and retracted posteriorly and a marcelino was made with scissors. The peritoneal plane was identified and dissected free down to the level hernia. The hernia sac was dissected free and reduced into the abdomen. The dissection plane was carried posteriorly until the great vessels were reached and there was enough of a pocket to place mesh in the groin. Next a piece of 3D mesh size medium was placed into the right groin and tacked to the pubic tubercle with pro-tack. It was also tacked anteriorly lateral to the epigastric vessel to the muscle. Next the peritoneum was elevated and it appears the mesh was lying flat with no folding. It adequately covered the hernia defect. The peritoneum was tacked anteriorly to reapproximate the peritoneum and cover the mesh completely. There were no defects in the peritoneum and the mesh appeared to lie flat beneath the peritoneum. The bowel was identified once more and the area that was incarcerated was inspected and appeared viable. There was no area of necrosis. There was good peristalsis. Next both ports were removed under direct visualization. The air was allowed to escape from the abdomen and the fascia at the umbilical site was closed with a [id number] 0 Vicryl suture. Next all skin incisions were injected with Marcaine and closed with interrupted 4-0 Monocryl sutures as well as Steri- Strips and bandages. The patient's OG was removed at the end of the case. The patient tolerated the procedure well and will be sent to PACU in stable condition. Grafts/Implants Used: Right Bard 3D mesh medium - Admit VTE Documentation VTE Mechan Device Prophylaxis: SCD's
--- NOTE | 2018-08-09 11:24 | PCA ---
pt off floor
[2018-08-09] MEDS: HYDROcodone Bitartrate/Apap 5/325 Tablet PO ×3 (12:43→23:07)
[2018-08-10] MEDS: Dextrose 5%-Lactated Ringers 1,000 ML 125 ML IV ×2 (05:03→13:11)
[2018-08-10] MEDS: HYDROcodone Bitartrate/Apap 5/325 Tablet PO ×2 (05:03→09:56)
[2018-08-10 05:04] VITALS: BP 126/76; PULSE 76; RESP 20; TEMP 36.9; O2SAT 97
[2018-08-10 06:20] LABS: Absolute Lymphocyte Count 2.01 X10^3/ul (0.83-4.51); Absolute Neutrophil Count 8.6 X10^3/uL (2.0-7.7); Basophil# 0.03 X10^3/uL; Basophil% 0.2 % (0-1); Eosinophil# 0.47 X10^3/uL; Eosinophils% 3.9 % (0-5); Hematocrit 29.6 % (40-54); Hemoglobin 9.9 g/dl (13.0-16.5); Lymphocyte # 2.01 X10^3/ul (4.0); Lymphocyte % 16.5 % (19-41); Mean Corp Hgb Conc 33.4 g/gl (32-36); Mean Corpuscular Hgb 29.1 pg (27.0-32.0); Mean Corpuscular Volume 87.1 fL (80-94); Mean Platelet Vol. 8.2 fl (6.2-12.0); Monocyte# 1.06 X10^3/uL; Monocyte% 8.7 % (0-10); Neutrophil % 70.5 % (47-70); Platelet Count 563 K/mm3 (150-450); RBC Distribution Width CV 13.9 % (11.6-14.6); RBC Distribution Width SD 44.5 fl (35.1-43.9); White Blood Count 12.2 K/mm3 (4.4-11.0)
[2018-08-10 06:39] LABS: POSITIVE COUNT NO; POSITIVE DIFFERENTIAL NO; POSITIVE MORPHOLOGY NO
[2018-08-10 06:40] LABS: Anion Gap 9 (5-15); BUN 11 mg/dL (7-18); BUN/Creat Ratio 13.1 RATIO (10-20); Calcium,Total 7.9 mg/dL (8.5-10.1); Chloride 103 mmol/L (98-107); Creatinine, Serum 0.84 mg/dL (0.70-1.30); EST Glomerular Filtration Rate 99 mL/min (>60); Est Glom Filt Rate - Afr Amer 119 mL/min (>60); Estimated Creatinine Clearance 67.84 ml/min; Glucose 106 mg/dL (74-106); Potassium 3.9 mmol/L (3.5-5.1); Sodium Level 139 mmol/L (136-145)
[2018-08-10 08:37] VITALS: BP 124/82; PULSE 70; RESP 16; TEMP 36.6; O2SAT 97
[2018-08-10 08:41] VITALS: O2SAT 97
--- NOTE | 2018-08-10 08:43 | PCM.PN.SRG ---
Patient Problems: Active and Suspected Problems Incarcerated right inguinal hernia (Acute) Subjective: Patient is doing well this morning. He tolerated clear liquids but he is still having some abdominal discomfort. He did pass some flatus this morning. - Physical Exam General: Alert, Oriented x3, Cooperative HEENT: Atraumatic Neck: No JVD Lungs: Normal air movement Cardiovascular: Regular rate, Regular Rhythm Abdomen: Soft, Non Tender, Distended - Mildly distended Vital Signs Temp Pulse Resp BP Pulse Ox 97.8 F 70 16 124/82 H 97 08/10/18 08:37 08/10/18 08:37 08/10/18 08:37 08/10/18 08:37 08/10/18 08:37 Oxygen Delivery Method Room Air Weight: 115 lb 15.41 oz Body Mass Index (BMI) 19.3 Intake and Output for Last 24 Hours 08/08/18 08/09/18 08/10/18 23:59 23:59 23:59 Intake Total 3402 / 3402 1981 / 1981 Output Total 250 / 250 450 / 450 Balance 3152 / 3152 1532 / 1532 Laboratory Tests Past 24 Hrs 08/10/18 08/10/18 05:50 05:50 WBC 12.2 H RBC 3.40 L Hgb 9.9 L Hct 29.6 L MCV 87.1 MCH 29.1 MCHC 33.4 RDW 13.9 RDW Differential 44.5 H Plt Count 563 H MPV 8.2 Immature Gran % (Auto) 0.200 Neut % (Auto) 70.5 H Lymph % (Auto) 16.5 L [place] % (Auto) 8.7 Eos % (Auto) 3.9 Baso % (Auto) 0.2 Absolute Neuts (auto) 8.6 H Absolute Lymphs (auto) 2.01 Total Counted Not Reportable Sodium 139 Potassium 3.9 Chloride 103 Carbon Dioxide 27.0 Anion Gap 9 BUN 11 Creatinine 0.84 Estim Creat Clear Calc 67.84 Est GFR (MDRD) Af Amer 119 Est GFR (MDRD) Non-Af 99 BUN/Creatinine Ratio 13.1 Glucose 106 Calcium 7.9 L Medical Necessity - Tobacco Use Smoking Status: Never smoker Assessment/Plan All Active Problems Incarcerated right inguinal hernia (Acute) 63-year-old male status post incarcerated right inguinal hernia repair 1. Patient is still mildly distended this morning. I will give him some more time on clear liquids and once he is passing more significant flatus I will advance his diet. Pain is well controlled. He is not describing any sharp abdominal pain. His incisions are clean dry and intact. Damion Conde MD Pager: [facility] [address] [place] [address], [address] [place] [address] Office:
[2018-08-10] MEDS: Enoxaparin 40 MG/0.4 ML Syringe SC (09:56)
--- NOTE | 2018-08-10 11:00 | CASEMGMT ---
MOHSEN RICHEY Face to Face with patient for initial transition planning/care coordination assessment. RN ROSSI introduced self and role at [facility]. Patient lying in bed, alert and oriented. Patient willing to participate in assessment and is able to answer all questions appropriately. Care providers, pharmacy, and demographics verified. Patient wishes to discharge home, denies need for home health at this time. Patient states he has no further needs or concerns at this time. CM to follow for discharge planning needs that may arise. PCP: No PCP, his retired. List of PCPs in [place] provided to patient Specialists: None Preferred Pharmacy: [facility] Insurance: [employer] Prescription Benefit: [employer] Living Will/HPOA: None LNOK: Daughter Living Arrangements: Patient lives with daughter in duplex and is independent at home. Transportation: Self/daughter DME/HHC: Patient denies DME Disposition Plan: Patient to discharge home with family support and follow-up plans in place. Vivian OWENS, RN, CM
[2018-08-10 11:55] LABS: Pathologist Review Reviewed
[2018-08-10 11:56] VITALS: BP 116/77; PULSE 73; RESP 16; TEMP 36.7; O2SAT 98
--- NOTE | 2018-08-10 14:25 | PCM.DC.HER ---
Discharge Diet: Light diet - advance as tolerated Discharge Activity: Return to Normal Activity, May Not Drive - for 2-3 days or while taking narcotic pain meds., May Shower - with the bandage in place 1-2 days after surgery. Lifting Restrictions: 20 pounds for 4 weeks. Additional Activity Instructions:: Climbing stairs is fine, walking is encouraged. Sitting in bed may be uncomfortable. Sitting up using your lateral muscles (sitting up sideways) is usually more comfortable. Do not drive, work heavy equipment of sign legal documents for 24 hours. If your hernia repair was an ingunial repair, you may have scrotal swelling, an ice pack and/or athletic support can provide more comfort. Pain medications may cause nausea, you should typically eat light foods as you take your pain medications. Pain medications may also cause constipation. If you have difficulty with this, discuss with your doctor. Call your doctor if your incision/area has: Continuous Slow Oozing, Sudden Increased Bleeding, Increased Pain/ Swelling, Increased Redness, Foul Smelling Discharge Call your doctor if you observe: Fever of 101 or Higher Suture Line Care: Avoid Pulling/Pushing, Avoid Pinching/Bending Change Dressing in (Days):: 3 - Leave steri-strips for 1 week. May protect with a guaze bandaid. Cleanse incision/area with: Keep Dressing Clean & Dry Allergies/Adverse Reactions: Allergies No Known Allergies Allergy (Verified 08/08/18 21:08) Medications to take at Discharge Naproxen Sodium [Aleve] 110 mg PO BID 03/10/14 Docusate Sodium [Colace] 100 mg PO BID 10 Days #20 capsule 08/10/18 Hydrocodone Bitart/Apap 5-325 [[place] 5/325] 1 - 2 tablet PO Q4H PRN PRN 6 Days #40 tablet 08/10/18 The following prescriptions were given: Hydrocodone Bitart/Apap 5-325 [[place] 5/325] 1 - 2 tablet PO Q4H PRN PRN 6 Days #40 tablet PRN Reason: Severe Pain (-06/24) Docusate Sodium [Colace] 100 mg PO BID 10 Days #20 capsule Primary Care Physician: [facility] Doctor,Out of [NON-STAFF] - Test Results: Test results from this visit will be discussed in further detail at your follow-up appointment, if applicable. Please Follow Up With: Damion Conde MD When: Please call to schedule 2 week follow up appointment. [phone]
--- NOTE | 2018-08-10 14:45 | DS.PCM_ITS ---
Discharge Date and Diagnosis Date of Admission: 08/08/18 Date of Discharge: 08/10/18 - Primary Discharge Diagnosis Active and Suspected Problems Incarcerated right inguinal hernia (Acute) Small bowel obstruction Hospital Course and Treatment Imaging Results: Clinical Impression(s) from Imaging Studies Abdomen/Pelvis CT 08/08/18 15:29 IMPRESSION: 1. High-grade small bowel obstruction due to small incarcerated right inguinal hernia. 2. A 2.6 cm hepatic cyst. Additional smaller lesions are too small to characterize. N.B. : The above information has been verbally conveyed by Dania Cade MD to Anahi Richmond MD, on 08/08/2018 19:03:58 (ET). Electronically Signed: Dania Cade MD at 18:49 EST Tel , Service support , KUB X-Ray 08/09/18 05:55 IMPRESSION: No significant change small bowel obstruction. Electronically Signed: Alia Hoskins MD at 5:49 EST , Service support , Operations: - - Laparoscopic right inguinal hernia repair with mesh Procedures: None Summary of Care Provided: The patient is a 63 year old M presented to the emergency room with nausea vomiting. The emergency room physician reduced the inguinal hernia after CT was performed. I saw the patient and admitted him but the following morning he was still having distention. CAT scan was down so I decided to take him for laparoscopic exploration and I did find that the small bowel was still in carcerated in the peritoneal defect from the hernia. This was reduced and the bowel was viable and so the inguinal hernia was laparoscopically repaired. The next day the patient was tolerating a diet and doing well. He was discharged home in stable condition. - Physical Exam Vital Signs Temp Pulse Resp BP Pulse Ox 98.1 F 73 16 116/77 98 08/10/18 11:56 08/10/18 11:56 08/10/18 11:56 08/10/18 11:56 08/10/18 11:56 Oxygen Delivery Method Room Air Weight: 115 lb 15.41 oz Body Mass Index (BMI) 19.3 Intake and Output for Last 24 Hours 11/24/18 11/25/18 11/26/18 23:59 23:59 23:59 Intake Total 3402 / 3402 3423 / 3423 Output Total 250 / 250 700 / 700 Balance 3152 / 3152 2723 / 2723 Laboratory Tests Past 24 Hrs 08/09/18 08/10/18 08/10/18 05:41 05:50 05:50 WBC 12.2 H RBC 3.40 L Hgb 9.9 L Hct 29.6 L MCV 87.1 MCH 29.1 MCHC 33.4 RDW 13.9 RDW Differential 44.5 H Plt Count 563 H MPV 8.2 Immature Gran % (Auto) 0.200 Neut % (Auto) 70.5 H Lymph % (Auto) 16.5 L [place] % (Auto) 8.7 Eos % (Auto) 3.9 Baso % (Auto) 0.2 Absolute Neuts (auto) 8.6 H Absolute Lymphs (auto) 2.01 Total Counted Not Reportable Diff Path Review Reviewed Sodium 139 Potassium 3.9 Chloride 103 Carbon Dioxide 27.0 Anion Gap 9 BUN 11 Creatinine 0.84 Estim Creat Clear Calc 67.84 Est GFR (MDRD) Af Amer 119 Est GFR (MDRD) Non-Af 99 BUN/Creatinine Ratio 13.1 Glucose 106 Calcium 7.9 L Discharge Diet: Light diet - advance as tolerated Discharge Activity: Return to Normal Activity, May Not Drive - for 2-3 days or while taking narcotic pain meds., May Shower - with the bandage in place 1-2 days after surgery. Additional Activity Instructions:: Climbing stairs is fine, walking is e ncouraged. Sitting in bed may be uncomfortable. Sitting up using your lateral muscles (sitting up sideways) is usually more comfortable. Do not drive, work heavy equipment of sign legal documents for 24 hours. If your hernia repair was an ingunial repair, you may have scrotal swelling, an ice pack and/or athletic support can provide more comfort. Pain medications may cause nausea, you should typically eat light foods as you take your pain medications. Pain medications may also cause constipation. If you have difficulty with this, discuss with your doctor. Call your doctor if your incision/area has: Continuous Slow Oozing, Sudden Increased Bleeding, Increased Pain/ Swelling, Increased Redness, Foul Smelling Discharge Call your doctor if you observe: Fever of 101 or Higher Suture Line Care: Avoid Pulling/Pushing, Avoid Pinching/Bending Change Dressing in (Days):: 3 - Leave steri-strips for 1 week. May protect with a guaze bandaid. Cleanse incision/area with: Keep Dressing Clean & Dry Home Medications: Medications to take at Discharge RX: Naproxen Sodium [Aleve] 110 mg PO BID 03/10/14 Docusate Sodium [Colace] 100 mg PO BID 10 Days #20 capsule 08/10/18 RX: Hydrocodone Bitart/Apap 5-325 [[place] 5/325] 1 - 2 tablet PO Q4H PRN PRN 6 Days #40 tablet 08/10/18 Following Prescrptions Were Given to Patient: RX: Hydrocodone Bitart/Apap 5-325 [[place] 5/325] 1 - 2 tablet PO Q4H PRN PRN 6 Days #40 tablet PRN Reason: Severe Pain (-06/24) Docusate Sodium [Colace] 100 mg PO BID 10 Days #20 capsule Primary Care Physician: [facility] Doctor,Out of [NON-STAFF] - Please Follow Up With: Damion Conde MD When: Please call to schedule 2 week follow up appointment. [phone] Medical Necessity - Tobacco Use Smoking Status: Never smoker Meaningful Use Info Meaningful Use Diagnoses (Choose all that apply): None applicable
[2018-08-10] MEDS: Docusate Sodium 100 MG Capsule PO (16:08)
[2018-08-10 18:05] VITALS: BP 143/86; PULSE 66; RESP 18; TEMP 36.6; O2SAT 97
== END 2018-08-10 18:40 | disposition home or self-care (01) | DRG 352 ==
LOC: ED 15:49 → MS3 20:10
PROVIDERS: Admitting Provider Surgery; Emergency Provider Emergency Medicine; Visit Provider Surgery
PROC: 0YU54JZ Supplement Right Inguinal Region with Synthetic Substitute, Percutaneous Endoscopic Approach (ICD-10-PCS; CPT 49650; principal; 2018-08-09 09:25)
DX: K40.30 Unilateral inguinal hernia, with obstruction, without gangrene, not specified as recurrent (principal); K76.89 Other specified diseases of liver; Z82.3 Family history of stroke; Z91.81 History of falling
CPT/HCPCS: 36415; 74018; 74177; 80048; 80053; 81001; 83605; 85025; 97802; 99284; J7030; J7040; Q9967; A4216; C1781; J2405

== ENCOUNTER 2023-02-04 22:28 | Emergency (ER) | payer MEDICARE, SELFPAY ==
[2023-02-04 22:29] VITALS: BP 141/89; PULSE 74; RESP 15; TEMP 37.1; O2SAT 98; BMI 23.3
[2023-02-04 23:33] VITALS: BMI 20.2
--- NOTE | 2023-02-04 23:55 | EX.ED.GENINJ ---
HPI History of Present Illness Chief Complaint: Other, Pain/Inj Detail of Chief Complaint: Atraumatic left lower back and hip pain. Informant: patient Onset/Context/Timing Onset: Today and Yesterday Current Severity: Mild Maximum Severity: Mild Associated Symptoms Associated Symptoms: Negative for Parasthesias, Weakness, Loss of function, Inability to ambulate, Loss of consciousness or Amnesia Narrative Narrative: 68-year-old male prior neck surgery. States he played a softball game on Friday. On Friday he had a left lower back and left hip discomfort. Denies any fall injury or trauma. He is able to ambulate. It is worse with movement. No prior hip or lower back surgery. No fever, redness, discoloration or swelling. Prior similar symptoms: No Recent Illness/Hospitalization: No PFSH PFSH Medical History Broken neck Hernia Home Medications naproxen sodium 220 mg tablet (Aleve) 110 mg PO BID sinus pressure 03/10/14 [History Last Taken 08/08/18 03:00] saw palm 160 mg-vit E 100 unit-selen 100 iwk-axed-kvgrec-pygeum tablet ([facility]) tab PO DAILY Check with primary doctor 02/04/23 [History Last Taken Unknown] Allergy/AdvReac Type Severity Reaction Status Date / Time No Known Allergies Allergy Verified 02/04/23 22:36 Family History Mother Heart disease Social History household members: family Smoking Status: Never smoker ROS ROS ED ROS Narrative Denies recent illness. Review of Systems ROS Unobtainable: Denies due to encephalopathy Constitutional Constitutional ED: Denies chills or fever(s) Eyes Eyes: Denies blurry vision ENT ENT ED: Denies ear pain Cardiovascular Cardiovascular: Denies chest pain Respiratory/Chest Respiratory/Chest: Denies cough or dyspnea Gastrointestinal Gastrointestinal: Denies abdominal pain Genitourinary Genitourinary ED: Denies dysuria Musculoskeletal Musculoskeletal: Reports back pain; Denies arthralgias Integumentary Denies abscess Neurologic Neurologic: Denies headache(s) Psychiatric Psychiatric: Denies anxiety Endocrine Endocrinology: Denies cold intolerance Hematologic/Lymphatic Hematologic/Lymphatic: Denies easy bleeding or easy bruising Allergic/Immunologic Allergic/Immunologic ED: Denies mouth swelling or tongue swelling EXAM Physical Exam Narrative Exam Narrative: Well-appearing 68-year-old male. Sitting upright in bed. Vital signs stable afebrile. H EENT exam multiple missing teeth otherwise unremarkable. Neck nontender. Lungs clear. Heart regular rhythm. Chest wall nontender. Abdomen soft nontender. Back he has no cervical, thoracic or lumbar spine tenderness. Minimal tenderness left lower paralumbar musculature. No spasm. No bruising or discoloration. He has full flexion extension of his left hip. There is no redness or warmth. There is no swelling. He has full internal/external rotation. He has full flexion extension of his left knee and foot. Both lower extremities are neurovascular intact with normal 5-5 strength and sensation. He is able to stand and ambulate without difficulty. Some discomfort in the back and hip. Both upper and right lower extremity unremarkable. Neurologic exam normal. Const Vital Signs: 02/04/23 22:29 Temperature 98.8 F Temperature Source Temporal Pulse Rate 74 Respiratory Rate 15 Blood Pressure 141/89 H Blood Pressure Mean 106 Pulse Ox 98 Oxygen Delivery Method Room Air Positive well nourished and well developed; Negative for obese, cachectic, contractures or unkempt General Appearance ED: well developed and NAD; Negative for unkempt, cachectic or contractures Nutritional Appearance: Negative for cachectic or obese HEENT atraumatic; Negative for trauma or tenderness Eyes PERRL and EOMs intact bilaterally General Eye ED: Negative for other Neck full ROM General: Negative for tenderness Chest Wall inspection of chest normal and palpation of chest normal Breast/Axilla Inspection: Negative for other Resp normal respiratory effort and clear to auscultation bilaterally Effort and Inspection: Negative for pain with movement Auscultation: Negative for rales, rhonchi or wheezes Cardio regular rhythm, S1 normal heart sound, S2 normal heart sound and no murmurs Palpation: Negative for palpable S3 Rate: regular rate Rhythm: Negative for abnormal rhythm GI normal to inspection, nondistended, normoactive bowel sounds, non-tender, non-distended and no masses Inspection: Negative for abdominal distention Auscultation: normoactive bowel sounds Palpation: soft; Negative for tender or guarding Back/Spine normal to inspection and no thoracic nor lumbar tenderness Back/Spine Narrative: Left lower back paralumbar soft tissue tenderness. No ecchymosis or bruising. General Back: Negative for CVA tenderness Thoracic Spine / Upper Back: Negative for thoracic spinal tenderness Extremity normal to inspection and full ROM General Extremety ED: Negative for deformity, edema or tenderness General Extremity: Negative for deformity or edema Neuro oriented x3, CN's II-XII intact bilaterally, moves all extremities, no focal motor deficits and no sensory deficits noted Sensorium / Orientation: alert, oriented to person, oriented to place and oriented to time; Negative for orientation impaired, lethargic or stuporous Motor Exam: strength 5/5 throughout; Negative for strength abnormal or muscle tone abnormal Psych mental status grossly normal and thought process normal Appearance: Negative for unkempt Attitude: No agitated Mood & Affect: Negative for depressed or anxious Skin no rashes or lesions noted, no wounds, skin turgor normal and no jaundice General Skin Exam: Negative for other Rashes: No rashes noted Trauma: Negative for abrasion Wounds: Negative for wounds noted Image ED - Body Diagram Man: 1. Left lower back soft tissue and hip mild discomfort. Full range of motion. No redness, swelling or bruising. No deformity. MDM MDM MDM Narrative Medical decision making narrative: 68-year-old male playing slow pitch softball on Friday started having soreness and discomfort of his left lower back and hip Friday and Friday. No fall or trauma. Normal range of motion. No signs of infection. No bony deformity. Clinically I do not think he needs x-rays he is comfortable with not having images done. He needs no labs. This appears to be muscular strain. Ice, hot bath and warm shower, Motrin and Tylenol. If is not improving I will give him 70 to follow-up with. History & Record Review Discussion w/independent historian: Patient Discharge Plan Triage Chief Complaint: Other, Pain/Inj ED Provider: Morro Damian Dx/Rx/DC Orders Clinical Impression: Lumbar strain, Hip strain Instructions: ED Hip Strain Prescriptions: No Action naproxen sodium [Aleve] 220 MG tablet 110 mg PO BID Label Comments: ALEVE SINUS AND HEADACHE [facility] 160-100-100 mg-unit-mcg Tablet PO DAILY Primary Care Provider: Care Physician,No Primary Referrals: Manny Obrien MD [Med Staff - Hospital [facility]] - 10-14 Days if not better Care Physician,No Primary [Primary Care Provider] - Activity Restrictions/Additional Instructions: It appears you strained your lower back and left hip from playing softball. Motrin for pain and inflammation. Tylenol for pain. Hot shower warm bath. Ice to the hip. This should progressively start feeling better if not follow-up. If significant worse return. Disposition Disposition: Home, Self Care
[2023-02-05 00:13] VITALS: RESP 18
== END 2023-02-05 00:14 | disposition home or self-care (01) ==
PROVIDERS: Emergency Provider Emergency Medicine; Visit Provider Emergency Medicine
DX: S39.012A Strain of muscle, fascia and tendon of lower back, initial encounter (principal); S76.012A Strain of muscle, fascia and tendon of left hip, initial encounter; X58.XXXA Exposure to other specified factors, initial encounter; Y93.64 Activity, baseball
CPT/HCPCS: 99282

== ENCOUNTER 2023-08-02 07:21 | Emergency (ER) | payer MEDICARE, SELFPAY ==
[2023-08-02 07:22] VITALS: BP 120/76; PULSE 60; RESP 13; TEMP 36.4; O2SAT 100; BMI 19.9
[2023-08-02 07:49] VITALS: BP 114/75; BP 124/80; BP 126/85; PULSE 61; PULSE 64; PULSE 70
--- NOTE | 2023-08-02 07:49 | CT_ITS ---
EXAM: CT HEAD WITHOUT INTRAVENOUS CONTRAST CLINICAL INDICATION: Trauma injury. Syncope. TECHNIQUE: Multiple axial images were obtained of the head without intravenous contrast. This CT exam was performed using one or more of the following dose reduction techniques: automated exposure control, adjustment of the mA and/or kV according to patient size, and/or use of iterative reconstruction technique. RADIATION DOSE: CTDIvol = 44.99 mGy, DLP = 796.11 mGy-cm COMPARISON: CT head without contrast 03/10/2014. FINDINGS: BRAIN AND EXTRA-AXIAL SPACES: Unremarkable. No intra- or extra-axial hemorrhage. No evidence of acute infarct. No intracranial mass or mass effect. There is preservation of the winters/white matter interface. Posterior fossa structures are unremarkable. Ventricles are appropriate for age. No hydrocephalus. Basal cisterns are patent. BONES/JOINTS: Unremarkable. No discrete lytic or blastic abnormalities. SINUSES: Clearing of air-fluid levels in the right factors sinus, right sphenoid sinus and frontal sinuses. Clearing of mucosal thickening of the ethmoid sinus. MASTOID AIR CELLS: Unremarkable. Clear. ORBITS: Visualized globes, extraocular muscles, optic nerves and retrobulbar fat appear unremarkable. CT/Brain/Head without Contrast IMPRESSION: 1. No CT evidence of intracranial bleeding, acute ischemic infarct, intracranial mass or acute intracranial abnormality. 2. Interval clearing of mucosal thickening and air-fluid levels in the paranasal sinuses. Electronically Signed: Raj Hatch MD at 8:21 EST ,
--- NOTE | 2023-08-02 07:51 | EDS_ITS ---
HPI History of Present Illness Chief Complaint: Syncope Informant: patient Narrative Narrative: Patient states he was getting ready for work this morning and apparently passed out and hit his head. He states he had already gotten up and got dressed. He remembers sitting down on a stool to put his shoes on, he then remembers standing up, and he remembers feeling hot but no other prodromal symptoms; no chest discomfort, dyspnea, headache, palpitations, and does not remember feeling lightheaded. No focal neurologic symptoms then or now. He remembers waking up on the floor seen blood, it took him a while to gather himself and then he realized it was coming from his scalp. He is not sure what he hit his head on. Last tetanus shot he thinks was between 5 and 10 years ago. He does not have any medical problems, but he does not see a doctor regularly. He states he takes Aleve-D for a history of chronic sinus issues and no other medications, he takes 1 of these every morning. He denies any recent illness or other symptoms recently. He has never had this happen before. No history of DVT or PE. No clinical symptoms of a DVT. No recent long travel/immobilization, surgery, or hospitalization. He had several remote surgeries but nothing recently. PFSH PFS Home Medications naproxen sodium 220 mg tablet (Aleve) 110 mg PO BID sinus pressure 03/10/14 [His tory Last Taken 08/08/18 03:00] saw palm 160 mg-vit E 100 unit-selen 100 rjm-jwry-xrobcl-pygeum tablet ([facility]) tab PO DAILY Check with primary doctor 02/04/23 [History Last Taken Unknown] Allergy/AdvReac Type Severity Reaction Status Date / Time No Known Allergies Allergy Verified 08/02/23 07:22 Family History Mother Heart disease Surgical History (Updated 08/02/23 @ 07:[address] Kristopher Victor MD) Broken neck Hernia Social History household members: family Smoking Status: Never smoker ROS ROS ED Constitutional Constitutional ED: Denies chills or fever(s) Eyes Eyes: Denies change in vision or diplopia ENT ENT ED: Denies rhinorrhea or sore throat Cardiovascular Cardiovascular: Reports syncope; Denies chest pain or palpitations Respiratory/Chest Respiratory/Chest: Denies cough or dyspnea Gastrointestinal Gastrointestinal: Denies abdominal pain, diarrhea, nausea or vomiting Genitourinary Genitourinary ED: Denies dysuria or hematuria Musculoskeletal Musculoskeletal: Denies back pain or neck pain Integumentary Reports laceration; Denies abscess or rash Neurologic Neurologic: Denies headache(s), paresthesias or weakness Psychiatric Psychiatric: Denies anxiety or suicidal thoughts EXAM Physical Exam Const Vital Signs: 08/02/23 07:22 08/02/23 07:22 08/02/23 07:49 Temperature 97.5 F L Temperature Source Oral Pulse Rate 60 Pulse Rate [Lying] 61 Pulse Rate [Sitting (for 1 minute prior to obtaining)] 64 Pulse Rate [Standing (for 1 minute prior to obtaining)] 70 Respiratory Rate 13 Respiratory Effort Normal Non-Labored Blood Pressure 120/76 Blood Pressure [Lying] 124/80 H Blood Pressure [Sitting (for 1 minute prior to obtaining)] 126/85 H Blood Pressure [Standing (for 1 minute prior to obtaining)] 114/75 Blood Pressure Mean 90 Blood Pressure Mean [Lying] 94 Blood Pressure Mean [Sitting (for 1 minute prior to obtaining)] 98 Blood Pressure Mean [Standing (for 1 minute prior to obtaining)] 88 Pulse Ox 100 Oxygen Delivery Method Room Air Positive well nourished and well developed General Appearance ED: well developed and NAD HEENT Reports moist mucous membranes HEENT Narrative: Horizontal scalp laceration just forward of the top of the head, 5 cm across, full-thickness clean appearing and linear. No significant hematoma, no crepitance or depression, no other signs of head/HEENT trauma. No facial tenderness. TMs not visible due to bilateral cerumen impaction, no CSF otorhinorrhea. No moore sign. No raccoon eyes. normocephalic and trauma Eyes PERRL and EOMs intact bilaterally Neck full ROM and supple Neck Narrative: Well-healed midline posterior neck scar Chest Wall inspection of chest normal and palpation of chest normal Resp normal respiratory effort and clear to auscultation bilaterally Cardio regular rate, regular rhythm and no murmurs Rate: Negative for tachycardic GI non-tender and non-distended Auscultation: normoactive bowel sounds Palpation: soft Back/Spine no CVA tenderness General Back: other FROM Extremity normal to inspection Extremity Narrative: Full range of motion throughout all 4 extremities all joints without any pain or significant trauma. Lots of dried blood on his hands, patient states this came from his scalp. General Extremety ED: Negative for edema, pulses abnormal or tenderness General Extremity: Negative for edema or pulses abnormal Neuro oriented x3, CN's II-XII intact bilaterally and no sensory deficits noted Sensorium / Orientation: awake and alert Motor Exam: strength 5/5 throughout Psych mental status grossly normal Psych Narrative: Amnestic to event otherwise normal exam Skin no rashes or lesions noted and no wounds Skin Narrative: Scalp laceration no other signs of trauma MDM MDM MDM Narrative Medical decision making narrative: Orthostatics are negative, labs are unremarkable his EKG is unremarkable except for prominent T waves but his initial troponin is negative. That to be repeated in 2 hours. His laceration was repaired see the procedure note, that was uneventful. CT of the head was obtained, I reviewed the images and the report which I agree with, negative for any intracranial injury. D-dimer returned negative, ruling out pulmonary embolus without need for further emergent work-up with regards to this. His second troponin 2 hours later came back in single digits as well, for a delta of 1 which is essentially a negative work-up for acute coronary syndrome. He was asymptomatic throughout his stay here. He was a little prerenal although his orthostatics were negative, so we gave him 500 cc of IV fluids, he is ambulatory without symptoms and I think this is a low risk syncope, at this time he is stable for discharge home close outpatient follow- up. He states he does not currently see anyone for regular medical maintenance, but he did see Carl Ma remotely so he can follow-up with him. Lab Data Attestation: I reviewed the patient's lab results. Labs: Laboratory Results - last 24 hr 08/02/23 08/02/23 07:36 09:44 WBC 8.9 RBC 4.85 Hgb 13.9 Hct 44.0 MCV 90.7 MCH 28.7 MCHC 31.6 L RDW Std Deviation 45.0 H RDW Coeff of Jeri 13.3 Plt Count 362 MPV 9.1 Immature Gran % (Auto) 0.700 Neut % (Auto) 40.3 L Lymph % (Auto) 41.2 H Carroll % (Auto) 9.2 Eos % (Auto) 7.4 H Baso % (Auto) 1.2 H Absolute Neuts (auto) 3.6 Absolute Lymphs (auto) 3.68 Nucleated RBC % 0 D-Dimer Quant (PE/DVT) 0.34 Sodium 140 Potassium 3.6 Chloride 112 H Carbon Dioxide 26.0 Anion Gap 2 L BUN 20 H Creatinine 1.01 Estim Creat Clear Calc 56.22 Est GFR (MDRD) Af Amer 95 Est GFR (MDRD) Non-Af 78 BUN/Creatinine Ratio 19.8 Glucose 131 H Calcium 8.3 L Troponin I High Sens 5 6 Radiography Diagnostic Testing: Clinical Impression(s) from Imaging Studies Brain CT 08/02/23 07:49 IMPRESSION: 1. No CT evidence of intracranial bleeding, acute ischemic infarct, intracranial mass or acute intracranial abnormality. 2. Interval clearing of mucosal thickening and air-fluid levels in the paranasal sinuses. Electronically Signed: Raj Hatch MD at 8:21 EST Reading Location ID and State: [address] [place] [address] , Service support , Rhythm Strip Rhythm Strip: Sinus Rhythm Rate: 60 Ectopy: None EKG Initial EKG: Attestation: I personally reviewed and interpreted this EKG as follows: Interpretation: Sinus Rhythm and No Acute Injury Pattern Comments: Peaked/acute T waves with early repole, possibly due to asthenic build Prior EKG tracings: not available for review Prior: No Prior Procedures Lacerations Scalp: Length: 5 cm Depth: Sub Q Shape: Linear Prep: Sterile Conditions and Chlorhexadine Laceration repair: Lidocaine with epi (3 cc, 1%), Local and Skin sutures ([place]) Number of Sutures/[place]: 5 Discharge Plan Triage Chief Complaint: Syncope ED Provider: Kristopher Victor Dx/Rx/DC Orders Clinical Impression: Syncope and collapse, Laceration of scalp Instructions: Causes of Syncope, ED Laceration Scalp Stitches or [place] Prescriptions: No Action naproxen sodium [Aleve] 220 MG tablet 110 mg PO BID Patient Comments: ALEVE SINUS AND HEADACHE [facility] 160-100-100 mg-unit-mcg Tablet PO DAILY Primary Care Provider: Care Physician,No Primary Referrals: Tisha Ma PA [Non-Staff] - 7 Days for suture removal (this coming week; 5-7 days for reevaluation and staple removal) Disposition Disposition: Home, Self Care
[2023-08-02 08:05] LABS: Absolute Lymphocyte Count 3.68 X10^3/uL (0.83-4.51); Absolute Neutrophil Count 3.6 X10^3/uL (2.0-7.7); Basophil# 0.11 X10^3/uL; Basophil% 1.2 % (0-1); Eosinophil# 0.66 X10^3/uL; Eosinophils% 7.4 % (0-5); Hemoglobin 13.9 g/dL (13.0-16.5); Lymphocyte # 3.68 X10^3/ul (0.83-4.51); Lymphocyte % 41.2 % (19-41); Mean Corp Hgb Conc 31.6 g/dL (32-36); Mean Corpuscular Hgb 28.7 pg (27.0-32.0); Mean Corpuscular Volume 90.7 fL (80-94); Mean Platelet Vol. 9.1 fl (6.2-12.0); Monocyte# 0.82 X10^3/uL; Monocyte% 9.2 % (0-10); NRBC Flagged by Analyzer 0 % (0-5); Neutrophil % 40.3 % (47-70); Platelet Count 362 K/mm3 (150-450); RBC Distribution Width CV 13.3 % (11.6-14.6); Red Blood Count 4.85 M/mm3 (4.6-6.2); White Blood Count 8.9 K/mm3 (4.4-11.0)
--- NOTE | 2023-08-02 08:14 | EKG12_ITS ---
Test Reason : SYNCOPE Blood Pressure : / mmHG Vent. Rate : 064 BPM Atrial Rate : 064 BPM P-R Int : 164 ms QRS Dur : 086 ms QT Int : 410 ms P-R-T Axes : 051 078 073 degrees QTc Int : 422 ms Normal sinus rhythm Early repolarization Normal ECG Confirmed by RADHA LAMB, ROBERT ([id number]), film editor MOLLY NOLASCO ([id number]) on 08/06/2023 12:34:24 PM Referred By: BB Confirmed By:ROBERT GARCIA MD
[2023-08-02 08:25] LABS: Anion Gap 2 (5-15); BUN 20 mg/dL (7-18); BUN/Creat Ratio 19.8 RATIO (10-20); Calcium,Total 8.3 mg/dL (8.5-10.1); Chloride 112 mmol/L (98-107); Creatinine, Serum 1.01 mg/dL (0.70-1.30); EST Glomerular Filtration Rate 78 mL/min (>60); Est Glom Filt Rate - Afr Amer 95 mL/min (>60); Estimated Creatinine Clearance 56.22 ml/min; Glucose 131 mg/dL (74-106); Potassium 3.6 mmol/L (3.5-5.1); Sodium Level 140 mmol/L (136-145); Troponin-I HS (w/2H Reflex) 5 pg/mL (3.0-78.0)
[2023-08-02 08:26] LABS: D-Dimer Quantitative (DVT/PE) 0.34 FEU/ug/m (0.27-0.49)
[2023-08-02] MEDS: Lidocaine 1% /Epi 1:100 (20ml) 20 ML Vial INFILT (09:39)
[2023-08-02] MEDS: 0.9% Normal Saline (500mL Bag) 500 ML 999 ML IV (09:39)
[2023-08-02 10:00] LABS: Reflex Troponin-HS? (from REC) Y
[2023-08-02 10:23] LABS: Troponin-I HS 6 pg/mL (3.0-78.0)
[2023-08-02 10:57] VITALS: BP 112/69; PULSE 63; RESP 16; O2SAT 100
== END 2023-08-02 11:00 | disposition home or self-care (01) ==
PROVIDERS: Emergency Provider Emergency Medicine; Visit Provider Emergency Medicine
DX: S01.01XA Laceration without foreign body of scalp, initial encounter (principal); R55 Syncope and collapse
CPT/HCPCS: 12002; 70450; 80048; 84484; 85025; 85379; 93005; 96360; 99285; J7040; A4216

== ENCOUNTER 2023-08-10 09:07 | Emergency (ER) | payer MEDICARE, SELFPAY ==
[2023-08-10 09:08] VITALS: BP 128/91; PULSE 90; RESP 16; TEMP 36.7; O2SAT 98; BMI 22.6
--- NOTE | 2023-08-10 10:55 | EDS_ITS ---
HPI History of Present Illness Chief Complaint: Suture Remv Narrative Narrative: 68-year-old male presenting for staple removal. He has 5 neal in his scalp from 7 days ago. He states he been healing well. No headaches, bleeding, drainage. Patient has been healing well. He is here for suture removal PFSH PFSH Home Medications naproxen sodium 220 mg tablet (Aleve) 110 mg PO BID sinus pressure 03/10/14 [History Last Taken 08/08/18 03:00] saw palm 160 mg-vit E 100 unit-selen 100 rjx-jkwn-qjllxm-pygeum tablet ([facility] [place] [facility]) tab PO DAILY Check with primary doctor 02/04/23 [History Last Taken Unknown] Allergy/AdvReac Type Severity Reaction Status Date / Time No Known Allergies Allergy Verified 08/02/23 07:22 Family History Mother Heart disease Surgical History Broken neck Hernia Social History household members: family Smoking Status: Never smoker ROS ROS ED Constitutional Constitutional ED: Denies chills, fever(s) or sweats Eyes Eyes: Denies blurry vision or change in vision ENT ENT ED: Denies ear pain or sore throat Cardiovascular Cardiovascular: Denies chest pain, palpitations or racing heartbeat Respiratory/Chest Respiratory/Chest: Denies cough, dyspnea or sputum Gastrointestinal Gastrointestinal: Denies abdominal pain, constipation, diarrhea, nausea or vomiting Genitourinary Genitourinary ED: Denies dysuria, hematuria or urinary frequency Musculoskeletal Musculoskeletal: Denies arthralgias, myalgias or neck pain Integumentary Denies abscess, Abrasions or rash Neurologic Neurologic: Denies headache(s), paresthesias or weakness Psychiatric Psychiatric: Denies anxiety, depression, suicidal ideation or suicidal thoughts Endocrine Endocrinology: Denies polydipsia or polyuria EXAM Physical Exam Const Vital Signs: 08/10/23 09:08 Temperature 98.0 F Temperature Source Temporal Pulse Rate 90 Respiratory Rate 16 Blood Pressure 128/91 H Blood Pressure Mean 103 Pulse Ox 98 Oxygen Delivery Method Room Air Positive well nourished General Appearance ED: NAD HEENT Reports moist mucous membranes Eyes PERRL and EOMs intact bilaterally Resp normal respiratory effort Effort and Inspection: Negative for retractions Cardio regular rate and regular rhythm Neuro oriented x3 and CN's II-XII intact bilaterally Sensorium / Orientation: alert Psych mental status grossly normal Skin Skin Narrative: 5 neal noted to be in laceration on the scalp. Wounds are well approximated. No evidence of infection. Patient's wounds were cleansed. [place] were removed without sequela. Patient Toller procedure well MDM MDM MDM Narrative Medical decision making narrative: Patient presenting for staple removal. [place] removed without any difficulty. She tolerated suture well. Wound care instructions and return precautions were given. Patient discharged stable condition. Impression: 1. Staple removal Discharge Plan Triage Chief Complaint: Suture Remv ED Provider: Flaco Vazquez Dx/Rx/DC Orders Instructions: Sutr or Stap Removal Prescriptions: No Action naproxen sodium [Aleve] 220 MG tablet 110 mg PO BID Patient Comments: ALEVE SINUS AND HEADACHE Prostate [facility] 160-100-100 mg-unit-mcg Tablet PO DAILY Primary Care Provider: Care Physician,No Primary Referrals: Care Physician,No Primary [Primary Care Provider] - Disposition Disposition: Home, Self Care
== END 2023-08-10 11:32 | disposition home or self-care (01) ==
PROVIDERS: Emergency Provider Student in an Organized Health Care Education/Training Program; Visit Provider Student in an Organized Health Care Education/Training Program
DX: Z48.02 Encounter for removal of sutures (principal)
CPT/HCPCS: 99282